=== PATIENT | female | born 1970 | race Caucasian/White ===

== ENCOUNTER 2016-04-14 16:44 | Emergency (ER) | payer SELFPAY ==
[2016-04-14 17:41] VITALS: BP 146/87
--- NOTE | 2016-04-14 18:25 | RAD ---
Indication: Medial LEFT foot pain post fall. Comparison: None. Technique: AP, lateral, and oblique views LEFT foot. Report: Negative for fracture or malalignment. Small os tibiale externum accessory ossicle. Mild osteophytosis and joint space narrowing at the first tarsal metatarsal joint consistent with mild osteoarthritis. Moderate plantar fascial origin bone spur. Nonfocal soft tissue swelling. IMPRESSION: Nonfocal soft tissue swelling. Negative for fracture or malalignment.
--- NOTE | 2016-04-14 18:26 | RAD ---
Indication: LEFT knee through foot pain following twisting injury. Comparison: Foot exam of the same date. Technique: AP, mortise, and lateral views LEFT ankle. REPORT AND IMPRESSION: Negative for fracture or malalignment. Moderate plantar fascial origin bone spur. Mild nonfocal soft tissue swelling.
--- NOTE | 2016-04-14 18:56 | RAD ---
Indication: Lateral knee pain post fall. Total joint replacement in October 2015. Comparison: None. Technique: AP, tunnel, lateral, sunrise views LEFT knee. REPORT AND IMPRESSION: Total knee prosthesis in place without evidence for loosening or periprosthetic fracture. Normal alignment. Suggestion of small joint effusion. Mild infrapatellar anterior soft tissue swelling.
--- NOTE | 2016-04-14 21:52 | UC ---
Lionel Anderson Janilya, scribed for Paulette Smith MD on 04/14/16 at 1829 . Knee Pain HPI - HPI Summary HPI Summary: A 45 y/o female came in to [facility] presenting w/ left knee pain. At work yesterday at 16:30 she twisted her ankle and knee while turning. No neck pain. No c/o hip pain, other than chronic arthritic symptoms. No chest pain / sob / palpitations. No abd discomfort. Some pain in L prox dorsa - med L foot, radiates to ankle. No new p/d/w perse, except pain, and exacerbation of chronic paresth. She is worried 2/2 recent L knee replacement. Tried to work today for approx 3 hrs. Unable to bear weight on L knee. PSHx left knee replacement 11/01/2015 in [place]. right knee replacement 08/03/2012. PMHx arthritis. - History of Current Complaint Chief Complaint: UCLowerExtremity Stated Complaint: LEG AND FOOT INJURY Time Seen by Provider: 04/14/16 17:46 Hx Obtained From: Patient Hx Last Menstrual Period: ablasion Onset/Duration: Sudden Onset, Lasting Hours, Still Present Severity Initially: Moderate Severity Currently: Moderate Character: Aching Aggravating Factor(s): Movement Alleviating Factor(s): Rest Associated Signs And Symptoms: Positive: Redness, Bruising - Risk Factors Septic Arthritis Risk Factor: Negative Gout Risk Factor: Age ^ 40 PMH/Surg Hx/FS Hx/Imm Hx Previously Healthy: No - see hpi Endocrine History Of: Denies: Diabetes, Thyroid Disease Cardiovascular History Of: Denies: Cardiac Disorders, Hypertension Respiratory History Of: Denies: COPD, Asthma GI/ History Of: Denies: Ulcer - Surgical History Surgical History: Yes Surgery Procedure, Year, and Place: 3 c-sections, back surgery, rhino plasty - Family History Known Family History: Positive: Other - double knee replacement - father - Social History Occupation: Employed Full-time Lives: With Family Alcohol Use: Occasionally Substance Use Type: None Smoking Status (MU): Never Smoked Tobacco Review of Systems Constitutional: Negative Skin: Bruising - bruising and redness of right anterior leg and right wrist Eyes: Negative ENT: Negative Respiratory: Negative Cardiovascular: Negative Gastrointestinal: Negative Genitourinary: Negative Motor: Decreased ROM Neurovascular: Negative Musculoskeletal: Arthralgia, Decreased ROM, Other: - see hpi Neurological: Negative Psychological: Negative All Other Systems Reviewed And Are Negative: Yes Physical Exam Triage Information Reviewed: Yes Appearance: Well-Nourished - nad. looks uncomfortable with ambulation Vital Signs: Initial Vital Signs Temp 98.1 F 04/14/16 17:36 Pulse 77 04/14/16 17:36 Resp 18 04/14/16 17:36 BP 146/87 04/14/16 17:36 Pulse Ox 100 04/14/16 17:36 Vital Signs Reviewed: Yes Eye Exam: Normal ENT Exam: Normal Neck exam: Normal - nontender Respiratory Exam: Normal - no dyspnea, no tachypnea, normal respiratory rate Respiratory: Positive: Chest non-tender, Lungs clear, Normal breath sounds, No respiratory distress, No accessory muscle use Cardiovascular Exam: Normal - Heart rate regular, good general skin color, good capillary refill Cardiovascular: Positive: RRR, No Murmur Abdominal Exam: Normal Abdomen Description: Positive: Nontender, Soft Bowel Sounds: Positive: Present Musculoskeletal Exam: Other - Bilat knees with knee replacement scars. L knee with + swelling. Tender post knee (Bakers cyst region?) Particularly tender prox med>lat tibia. No laxity appreciate; however laxity testing not reliable 2 /2 pain. Feet both good cap refill, warm to touch. dp/pt 1+ equal. Walks with limp, unable to bear full weight 2/2 pain. Musculoskeletal: Positive: ROM Limited @ Neurological Exam: Normal - nonfocal and grossly intact Psychological Exam: Normal - conversing easily and appropriately Skin Exam: Other - eccymosis left ant forearm. Left wrist and elbow nontender. CR good. ecymosis L prox ant tib. Minimal tender. BLE chronic venous insuff changes and varicosities. Diagnostics - Radiology foot xray Xray Interpretation: No Acute Changes Radiology Interpretation Completed By: Radiologist ankle xray Xray Interpretation: No Acute Changes Radiology Interpretation Completed By: Radiologist - REPORT AND IMPRESSION: Negative for fracture or malalignment. Moderate plantar fascial origin bone spur. Mild nonfocal soft tissue swelling. knee xray Xray Interpretation: No Acute Changes Radiology Interpretation Completed By: Radiologist - REPORT AND IMPRESSION: Total knee prosthesis in place without evidence for loosening or periprosthetic fracture. Normal alignment. Suggestion of small joint effusion. Mild infrapatellar anterior soft tissue swelling. Knee Pain Course/Dx - Course Course Of Treatment: Reviewed xray reports with pt. Will refer to local orthopedist, she no longer resides in state [place] of surgery. Recommend minimal weight bearing with walker and immobilizer. F/u orthopedist this week. She will call for appointment on Sunday. No work x 7 days, unless ok by orthopedist sooner. Weight bearing criteria per orthopedist. Considered diff dx's below. Declines analgesics. Questions answered to the best of my ability. - Differential Dx/Diagnosis Provider Diagnoses: Multiple bruises. L knee contusion and sprain in the setting of twist and fall at work yesterday. Discharge - Discharge Plan Condition: Stable Disposition: HOME Patient Education Materials: Knee Sprain (ED), How to Choose and Use a Walker ( GEN), Contusion in Adults (ED), Knee Immobilizer (ED) Forms: *Work Release Referrals: Salvador Lyons MD [Medical Doctor] - Additional Instructions: Follow up with orthopedic surgeon WITHIN ONE WEEK. Referral to Dr. Lyons. No work until 22 April 2016, unless otherwise advised by orthopedic surgeon. Walker and minimal weight bearing until evaluated by orthopedic surgeon. Senior Living weightbearing and work instructions per orthopedic surgeon. Follow up with your primary care physician, this week as possible, for general recheck. Seek medical attention if symptoms persist/worsen or if new problems develop. The documentation as recorded by the Lionel catalan Janilya accurately reflects the service I personally performed and the decisions made by me, Paulette Smith MD.
== END 2016-04-14 19:35 | disposition home or self-care (01) ==
LOC: UCEAST 16:44
DX: S80.02XA Contusion of left knee, initial encounter (principal); S80.11XA Contusion of right lower leg, initial encounter; S83.92XA Sprain of unspecified site of left knee, initial encounter; S60.211A Contusion of right wrist, initial encounter; W19.XXXA Unspecified fall, initial encounter; Y93.9 Activity, unspecified; Y92.89 Other specified places as the place of occurrence of the external cause; Y99.0 Civilian activity done for income or pay; Z96.653 Presence of artificial knee joint, bilateral; S50.12XA Contusion of left forearm, initial encounter
CPT/HCPCS: 99203; G0463